=== PATIENT | female | born 1990 | race Caucasian/White ===

== ENCOUNTER → 2023-06-05 09:37 | Outpatient (REF) | payer OTHER, SELFPAY ==
[2023-06-08 12:06] LABS: HPV, High Risk Not Detected; HPV, High Risk Source Anal
== END ==
LOC: CLAB 09:37
PROVIDERS: ATTENDING PHYSICIAN Physician Assistant
DX: Z86.19 Personal history of other infectious and parasitic diseases (principal)
CPT/HCPCS: 87624; 88112

== ENCOUNTER 2024-01-15 11:54 | Outpatient (RCR) | payer OTHER, SELFPAY | END 2024-01-15 23:59 | disposition home or self-care (01) | LOC: RPT 11:54 | PROVIDERS: ATTENDING PHYSICIAN Student in an Organized Health Care Education/Training Program; FAMILY PHYSICIAN Family Medicine | DX: N81.10 Cystocele, unspecified (principal); N81.6 Rectocele; N39.41 Urge incontinence; Z73.6 Limitation of activities due to disability | CPT/HCPCS: 97014; 97110; 97112; 97163; 97530 ==

== ENCOUNTER 2024-02-11 10:02 | Outpatient (RCR) | payer OTHER, SELFPAY | END 2024-02-11 23:59 | disposition home or self-care (01) | LOC: RPT 10:02 | PROVIDERS: ATTENDING PHYSICIAN Student in an Organized Health Care Education/Training Program; FAMILY PHYSICIAN Family Medicine | DX: N81.10 Cystocele, unspecified (principal); N81.6 Rectocele; N39.41 Urge incontinence; Z73.6 Limitation of activities due to disability | CPT/HCPCS: 97014; 97110; 97112; 97530 ==

== ENCOUNTER → 2024-03-10 07:56 | Outpatient (REF) | payer OTHER, SELFPAY | LOC: WDC 07:56 | PROVIDERS: ATTENDING PHYSICIAN Physician Assistant | DX: N64.4 Mastodynia (principal) | CPT/HCPCS: 76642 ==

== ENCOUNTER 2024-03-28 13:11 | Outpatient (RCR) | payer OTHER, SELFPAY | END 2024-03-28 23:59 | disposition home or self-care (01) | LOC: RPT 13:11 | PROVIDERS: ATTENDING PHYSICIAN Student in an Organized Health Care Education/Training Program; FAMILY PHYSICIAN Family Medicine | DX: N81.10 Cystocele, unspecified (principal); N81.6 Rectocele; N39.41 Urge incontinence; Z73.6 Limitation of activities due to disability | CPT/HCPCS: 97110; 97530 ==